=== PATIENT | female | born 1940 ===

== ENCOUNTER 2017-09-26 17:50 | Emergency (ER) | payer MEDICARE, MEDICAID ==
[2017-09-26 17:59] VITALS: BP 148/75; PULSE 65; RESP 18; TEMP 97.7; O2SAT 99
--- NOTE | 2017-09-26 18:12 | C.PDOC ---
History Of Present Illness 77 year old female presents to the ER complaining of left sided neck pain which has been present since yesterday. Patient states that she woke up in the morning and she still had pain today.. Patient states that she took Meloxicam which provided mild relief. Patient reports that the pain is worse with movement. Patient denies having any injury,headache, and other medical complaints. Time Seen by Provider: 09/26/17 18:08 Chief Complaint (Nursing): Back Pain History Per: Patient History/Exam Limitations: no limitations Onset/Duration Of Symptoms: Days Current Symptoms Are (Timing): Still Present Severity: Moderate Past Medical History Reviewed: Historical Data, Nursing Documentation, Vital Signs Vital Signs: Last Vital Signs Temp 97.7 F 09/26/17 17:56 Pulse 65 09/26/17 17:56 Resp 18 09/26/17 17:56 BP 148/75 09/26/17 17:56 Pulse Ox 99 09/26/17 19:30 - Medical History PMH: Arthritis, HTN Surgical History: Cholecystectomy Family History: States: No Known Family Hx - Social History Hx Alcohol Use: No Hx Substance Use: No - Immunization History Hx Tetanus Toxoid Vaccination: No Hx Influenza Vaccination: No Hx Pneumococcal Vaccination: No Review Of Systems Except As Marked, All Systems Reviewed And Found Negative. Musculoskeletal: Positive for: Neck Pain Neurological: Negative for: Weakness, Numbness, Headache Physical Exam - Physical Exam Appears: Non-toxic, No Acute Distress Skin: Warm, Dry, No Rash Head: Atraumatic, Normacephalic Eye(s): bilateral: Normal Inspection, EOMI Nose: Normal Oral Mucosa: Moist Neck: No Midline Cervical Tenderness, Paracervical Tenderness (tenderness on left side of neck), No Step Off Deformity, Supple, Other (pain worse with movement to left side ) Lymphatic: Normal Exam, No Adenopathy Chest: Symmetrical Cardiovascular: Rhythm Regular Respiratory: Normal Breath Sounds, No Accessory Muscle Use, No Rales, No Rhonchi , No Wheezing Extremity: Bilateral: Atraumatic, Normal Color And Temperature, Normal ROM Neurological/Psych: Oriented x3, Normal Speech, Normal Motor, Normal Sensation Gait: Steady ED Course And Treatment O2 Sat by Pulse Oximetry: 99 (RA) Pulse Ox Interpretation: Normal Medical Decision Making Medical Decision Making: Impression: Left-sided neck pain Plan: --Flexeril 10 mg PO --Toradol 30 mg IM 1900 On re-evaluation patient reports feeling better and is asking for discharge. She is able to move neck better without pain. Patient is stable for discharge. Rx given. Advise follow up with PCP. Disposition Counseled Patient/Family Regarding: Diagnosis, Need For Followup, Rx Given - Disposition Referrals: Zafar Hutton DO [Staff Provider] - Disposition: HOME/ ROUTINE Disposition Time: 18:57 Condition: STABLE Additional Instructions: Continue with your usual medications including meloxicam for pain Take flexeril as needed for muscle pain, caution can make you drowsy Follow up with your doctor for further evaluation Prescriptions: Cyclobenzaprine [Cyclobenzaprine HCl] 10 mg PO Q6 PRN #21 tab PRN Reason: Pain, Moderate (4-7) Instructions: Cyclobenzaprine (By mouth), Cervical Sprain (ED) Forms: [employer] (British) Print Language: KHMER - POA Present On Arrival: None - Clinical Impression Clinical Impression: Neck pain, Muscle spasms of neck - PA / [employer] OF [employer] / Resident Statement / has reviewed & agrees with the documentation as recorded. - Scribe Statement The provider has reviewed the documentation as recorded by the Bárbara Abdi Provider Attestation All medical record entries made by the Bárbara were at my direction and personally dictated by me. I have reviewed the chart and agree that the record accurately reflects my personal performance of the history, physical exam, medical decision making, and the department course for this patient. I have also personally directed, reviewed, and agree with the discharge instructions and disposition.
== END 2017-09-26 19:04 | disposition home or self-care (01) ==
LOC: C.ER 17:50
DX: M54.2 Cervicalgia (principal); M62.838 Other muscle spasm
CPT/HCPCS: 96372; 99284; J1885